=== PATIENT | male | born 1985 | race Caucasian/White ===

== ENCOUNTER 2016-08-27 | Emergency (ER) | payer OTHER, MEDICAID | END 2016-08-27 07:50 | disposition home or self-care (01) ==

== ENCOUNTER 2016-08-27 | Outpatient (CLI) | payer OTHER, MEDICAID | END 2016-08-27 06:47 | disposition critical access hospital (66) | CPT/HCPCS: A0425; A0429 ==

== ENCOUNTER 2016-08-29 14:49 | Emergency (ER) | payer OTHER, MEDICAID ==
[2016-08-29] MEDS ORDERED: IOPAMIDOL-300 100 ML VIAL IVP ONE (15:38)
== END 2016-08-29 17:00 | disposition home or self-care (01) ==
DX: S20.312A Abrasion of left front wall of thorax, initial encounter (principal); S29.011A Strain of muscle and tendon of front wall of thorax, initial encounter; R10.84 Generalized abdominal pain; V43.52XA Car driver injured in collision with other type car in traffic accident, initial encounter; Y92.488 Other paved roadways as the place of occurrence of the external cause; R03.0 Elevated blood-pressure reading, without diagnosis of hypertension; J45.909 Unspecified asthma, uncomplicated; F17.200 Nicotine dependence, unspecified, uncomplicated
CPT/HCPCS: 36415; 71260; 74177; 80053; 80320; 83690; 85025; 99283; 99284; Q9967

== ENCOUNTER 2016-09-02 13:08 | Emergency (ER) | payer OTHER, MEDICAID | END 2016-09-02 15:06 | disposition home or self-care (01) | DX: S39.012A Strain of muscle, fascia and tendon of lower back, initial encounter (principal); S16.1XXA Strain of muscle, fascia and tendon at neck level, initial encounter; V89.2XXA Person injured in unspecified motor-vehicle accident, traffic, initial encounter; M62.830 Muscle spasm of back; F17.200 Nicotine dependence, unspecified, uncomplicated ==

== ENCOUNTER 2016-12-16 23:35 | Outpatient (CLI) | payer MEDICAID | END 2016-12-16 23:36 | disposition EMS.NT | LOC: EMS 23:35 | PROVIDERS: ATTEND Surgery | DX: R25.2 Cramp and spasm (principal) ==

== ENCOUNTER 2016-12-17 00:06 | Emergency (ER) | payer MEDICAID, OTHER ==
--- NOTE | 2016-12-17 00:39 | ED Physician Documentation ---
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 [place] like "kinza horse".) Quality: Cramping Location: Other (lower abd wall muscles and also both anterior thighs) Radiation: No: Lower back Worsened by: Moving Associated symptoms: No: Fever, Nausea, Vomiting, Loss of appetite, Weight loss Similar symptoms before: Has not had sx before (has had some mild muscle cramping intermittently for 1-2 weeks. No significant muscle spasms/cramps like tonight in the past.) Recently seen: Not recently seen Review of Systems Constitutional: reports: Myalgias (thighs and legs the past week, but had returned to fencing job so thought it was just that. He has been drinking 12 beers daily for the past few months. Has been off alcohol for day or two at times, without withdrawal symptoms.). denies: Fever, Chills, Fatigue Nose: denies: Rhinorrhea / runny nose, Congestion Throat: denies: Sore throat Cardiac: denies: Chest pain / pressure Respiratory: denies: Cough GI: reports: Nausea. denies: Abdominal Pain, Vomiting, Diarrhea : denies: Dysuria, Frequency Skin: denies: Rash, Lesions Neurologic: denies: Focal weakness, Numbness Psychiatric: reports: Anxiety. denies: Depressed Endocrine: denies: Weight loss Immunocompromised: denies: Immunocompromised PD PAST MEDICAL HISTORY - Past Medical History Cardiovascular: None Respiratory: Asthma Neuro: None Endocrine/Autoimmune: None Psych: Anxiety, Panic attacks Derm: Eczema - Past Surgical History Past Surgical History: No - Present Medications Home Medications: Ambulatory Orders Medication Instructions Recorded Confirmed No Known Home Medications [No 12/17/16 12/17/16 Known Home Medications] - Allergies Allergies/Adverse Reactions: Allergies Allergy/AdvReac Type Severity Reaction Status Date / Time seafood Allergy Hives Uncoded 12/17/16 00:11 - Social History Does the pt smoke?: Yes Smoking Status: Current every day smoker Does the pt drink ETOH?: Yes ETOH Use: Beer Does the pt have substance abuse?: No - Family History Family history: reports: Non contributory - Immunizations Immunizations are current?: No Immunizations: TDAP >10years/unknown - POLST Patient has POLST: No PD ED PE NORMAL - Vitals Vital signs reviewed: Yes - General General: Alert and oriented X 3, No acute distress, Well developed/nourished, Other (smell of alcohol on his breath) - HEENT HEENT: Moist mucous membranes, Pharynx benign - Neck Neck: Supple, no meningeal sign, No adenopathy - Cardiac Cardiac: RRR, No murmur - Respiratory Respiratory: Clear bilaterally - Abdomen Abdomen: Normal bowel sounds, Soft, Non tender, Non distended - Derm Derm: Normal color, Warm and dry, No rash - Extremities Extremities: No calf tenderness / cord, Other (some tenderness in thigh muscles anteriorly. ) - Neuro Neuro: Alert and oriented X 3, No motor deficit, No sensory deficit, Normal speech Results - Vitals Vitals: Vital Signs - 24 hr 12/17/16 12/17/16 00:09 01:50 Temperature 36.1 C L 36.4 C L Heart Rate 77 Respiratory 16 16 Rate Blood Pressure 130/76 126/60 O2 Saturation 96 100 Oxygen O2 Source Room air - Labs Labs: Laboratory Tests 12/17/16 12/17/16 00:39 00:39 WBC 5.3 RBC 4.85 Hgb 15.1 Hct 43.6 MCV 89.9 MCH 31.1 H MCHC 34.6 RDW 13.6 Plt Count 164 MPV 9.3 Neut # 3.3 Lymph # 1.0 L [place] # 0.5 Eos # 0.4 Baso # 0.0 Absolute Nucleated RBC 0.00 Nucleated RBCs 0.0 Sodium 140 Potassium 3.6 Chloride 103 Carbon Dioxide 25 Anion Gap 12.0 BUN 24 H Creatinine 1.3 H Estimated GFR (MDRD) 65 L Glucose 104 H Calcium 9.3 Magnesium 1.9 Total Bilirubin 0.5 AST 33 ALT 24 Alkaline Phosphatase 64 Total Creatine Kinase 555 H Total Protein 7.4 Albumin 4.7 Globulin 2.7 Albumin/Globulin Ratio 1.7 Lipase 20 L PD MEDICAL DECISION MAKING - ED course Complexity details: considered differential (he has not been on abx, does not take meds such as statins. He does drink regularly so consider alcohol related myopathy with pains. He has been working doing fencing the past week, so could be muscle soreness from that. Mildly elevated CK of 500s. He does not seem dehydrated per se. ), d/w patient Departure - Departure Disposition: Home, Self Care Clinical Impression: Muscle cramping Condition: Stable Record reviewed to determine appropriate education?: Yes Instructions: ED Muscle Pain Leg Cramps Follow-Up: Meri Fonseca ARNP [Credentialed Staff Provider] - [facility] [Provider Group] Comments: Your electrolytes are normal in blood testing. There is sign of some muscle breakdown on blood test. This can be from many reasons, but common would be overuse, such as working hard. Some medications can cause it but you are not on regular medications. Excess alcohol can lead to muscle breakdown and weakness as well. I would maintain your level of hydration and food intake, but suggest to quite cut down on the amount of alcohol use. Rest tomorrow off work, and resume activity after that if feeling okay. Ibuprofen twice daily to help with muscle pains. Recheck if not improved over the next few days. Forms: Activity restrictions Discharge Date/Time: 12/17/16 01:50
[2016-12-17] MEDS ORDERED: SODIUM CHLORIDE 0.9% 1,000 ML IV ONE (00:54)
[2016-12-17 01:01] LABS: BASOPHILS % (AUTO) 0.7 %; EOSINOPHILS # (AUTO) 0.4 10^3/uL (0.0-0.7); EOSINOPHILS % (AUTO) 8.1 %; HCT - HEMATOCRIT 43.6 % (42.0-52.0); HGB - HEMOGLOBIN 15.1 g/dL (14.0-18.0); LYMPHOCYTES % (AUTO) 18.1 %; MEAN CORPUSCULAR HEMOGLOBIN 31.1 pg (27.0-31.0); MEAN CORPUSCULAR HGB CONC 34.6 g/dL (32.0-36.0); MEAN CORPUSCULAR VOLUME 89.9 fL (80.0-94.0); MEAN PLATELET VOLUME 9.3 fL (7.4-11.4); MONOCYTES # (AUTO) 0.5 10^3/uL (0.0-1.0); NEUTROPHILS # (AUTO) 3.3 10^3/uL (1.5-6.6); NEUTROPHILS % (AUTO) 63.1 %; RED BLOOD COUNT 4.85 10^6/uL (4.70-6.10); RED CELL DISTRIBUTION WIDTH 13.6 % (12.0-15.0); UNCORRECTED WHITE BLOOD COUNT 5.3 x10^3/uL; WHITE BLOOD COUNT 5.3 x10^3/uL (4.8-10.8)
[2016-12-17 01:11] LABS: ALBUMIN/GLOBULIN RATIO 1.7 (1.0-2.2); BILIRUBIN,TOTAL 0.5 mg/dL (0.2-1.0); CALCIUM 9.3 mg/dL (8.5-10.3); CREATININE 1.3 mg/dL (0.6-1.2); MAGNESIUM 1.9 mg/dL (1.7-2.8); POTASSIUM 3.6 mmol/L (3.5-5.0); TOTAL PROTEIN 7.4 g/dL (6.7-8.2)
[2016-12-17 01:52] VITALS: BP 126/60
== END 2016-12-17 01:50 | disposition home or self-care (01) ==
LOC: ED 00:06
DX: G47.62 Sleep related leg cramps (principal); J45.909 Unspecified asthma, uncomplicated; F17.200 Nicotine dependence, unspecified, uncomplicated
CPT/HCPCS: 36415; 80053; 82550; 83690; 83735; 85025; 96360; 99283; 99284

== ENCOUNTER 2017-01-04 10:20 | Emergency (ER) | payer MEDICAID ==
--- NOTE | 2017-01-04 11:53 | ED Physician Documentation ---
History of Present Illness - Stated complaint Stated Complaint: DEPRESSION - Chief complaint Chief Complaint: MHE - History obtained from History obtained from: Patient - Treatment prior to arrival Treatment prior to arrival: Patient is a pleasant 31-year-old man with a long history of alcohol abuse. He currently drinks about 12 beers a day. He is here because he has been feeling down. He has felt depressed off and on for a long time and is never really been formally medicated for this problem. He is aware that his alcohol consumption is a problem and that he does have alcoholism. He does have some family who lives locally in the area. More recently he has had problems with homelessness and loss of his girlfriend and fairly recently he has lost his job. He denies any suicidality although many years ago he thought about it but he said he would never do it. He currently is going to be staying with a friend and has an appointment next week with Mari Alba on Friday He does not have any history of illicit drug use although he does smokeCigarettes. He does mention that many years ago he did have a problem methamphetamines but this is been at least 8 years.He has had periods of time where he is gone without drinking and has not had any formal withdrawal symptoms. Review of systems: For pertinent positive and negative questions for the review of systems please see history of present illness. Otherwise all other systems have been reviewed and are negative. Dragon disclaimer: Parts of this medical record were created using voice recognition technology. Because of the inherent limitations of this system occasional same sounding word substitutions do occur and persist despite proofreading. Please read the document for context. PD PAST MEDICAL HISTORY - Past Medical History Cardiovascular: None Respiratory: Asthma Neuro: None Endocrine/Autoimmune: None Psych: Anxiety, Panic attacks Derm: Eczema - Past Surgical History Past Surgical History: No - Present Medications Home Medications: Ambulatory Orders Medication Instructions Recorded Confirmed Lorazepam [Ativan] 1 mg PO TID #14 tablet 01/04/17 - Allergies Allergies/Adverse Reactions: Allergies Allergy/AdvReac Type Severity Reaction Status Date / Time seafood Allergy Hives Uncoded 12/17/16 00:11 - Social History Does the pt smoke?: Yes Smoking Status: Current every day smoker Does the pt drink ETOH?: Yes Does the pt have substance abuse?: No - Immunizations Immunizations are current?: No Immunizations: TDAP >10years/unknown - POLST Patient has POLST: No PD ED PE NORMAL - General General: Alert and oriented X 3, No acute distress - HEENT HEENT: Atraumatic, PERRL, EOMI, Ears normal, Moist mucous membranes, Pharynx benign, Dentition benign - Neck Neck: Supple, no meningeal sign - Cardiac Cardiac: RRR, No murmur, No gallop, No rub - Respiratory Respiratory: No respiratory distress, Clear bilaterally - Abdomen Abdomen: Normal bowel sounds, Soft, Non tender, Non distended - Derm Derm: Normal color, Warm and dry, No rash - Extremities Extremities: No deformity, No tenderness to palpate - Neuro Neuro: Alert and oriented X 3, grounds person 2-12 intact, No motor deficit, No sensory deficit - Psych Psych: Normal mood - Free text exam Free text exam: Mildly depressed mood and affect Results - Vitals Vitals: Vital Signs - 24 hr 01/04/17 10:23 Temperature 36.8 C Heart Rate 75 Respiratory 16 Rate Blood Pressure 137/84 H O2 Saturation 97 Oxygen O2 Source Room air PD MEDICAL DECISION MAKING - ED course ED course: Patient is a pleasant 31-year-old male with a history of alcoholism and more recently depression. There are several things in his life that he is down about. His job with his girlfriend at home situation. He does have family and friend support in the area. He does realize that alcohol is probably guzmán toHis problems. It does not sound like he is ready however to go into rehabilitation although was offered to him today. He is hoping to follow-up outpatient and remedy this problem is also hoping for a small amount of benzodiazepines toHelp him with his anxiety symptoms and also his withdrawal.I did talk with him about Alcoholics Anonymous and other various support groups and the importance of stopping alcoholism as it is probably causal to all of the other social and psychologic problems that he is having. He does agree to try to significantly decrease amount of drinking he is doing in the future and does agree to follow- up on Friday for the appointment and also will try Alcoholics Anonymous. Patient was seen by mental health and they are in agreement. He apparently is contracted to safety. He agrees to come back should he worsen in any way at this point in time will be discharged to home. Disposition: To home Clinical impression: 1. Acute depression 2. Alcoholism 3. No suicidal or homicidal ideation Departure - Departure Disposition: Home, Self Care Clinical Impression: Anxiety, Alcohol abuse Depression Qualifiers: Depression Type: dysthymia Qualified Code(s): F34.1 - Dysthymic disorder Condition: Good Instructions: ED Depression, ED Panic Attack, Alcoholism Prescriptions: Lorazepam [Ativan] 1 mg PO TID #14 tablet Comments: Follow-up on Friday with your appointment with Mari Alba as previously planned
[2017-01-04 12:25] VITALS: BP 130/80
== END 2017-01-04 12:21 | disposition home or self-care (01) ==
LOC: ED 10:20
DX: F32.9 Major depressive disorder, single episode, unspecified (principal); F10.20 Alcohol dependence, uncomplicated; F41.9 Anxiety disorder, unspecified; F17.200 Nicotine dependence, unspecified, uncomplicated; F34.1 Dysthymic disorder
CPT/HCPCS: 99283

== ENCOUNTER 2017-01-13 17:36 | Emergency (ER) | payer MEDICAID ==
--- NOTE | 2017-01-13 19:50 | ED Physician Documentation ---
PD HPI LOWER EXT INJURY - Stated complaint Stated Complaint: LEFT CALF INJ - Chief complaint Chief Complaint: Ext Problem - History obtained from History obtained from: Patient - History of Present Illness PD HPI LOW EXT INJURY LOCATION: Other (Hit left medial calf with a skateboard while skateboarding today, has moderate pain but no pain at rest.) Review of Systems Constitutional: reports: Reviewed and negative Throat: reports: Reviewed and negative Cardiac: reports: Reviewed and negative PD PAST MEDICAL HISTORY - Past Medical History Past Medical History: Yes Cardiovascular: None Respiratory: Asthma Neuro: None Endocrine/Autoimmune: None Psych: Anxiety, Panic attacks Derm: Eczema - Past Surgical History Past Surgical History: No - Present Medications Home Medications: Ambulatory Orders Medication Instructions Recorded Confirmed Lorazepam [Ativan] 1 mg PO TID PRN 01/13/17 01/13/17 - Allergies Allergies/Adverse Reactions: Allergies Allergy/AdvReac Type Severity Reaction Status Date / Time seafood Allergy Hives Uncoded 01/13/17 17:44 - Social History Does the pt smoke?: Yes Smoking Status: Current every day smoker Does the pt drink ETOH?: Yes ETOH Use: Beer Does the pt have substance abuse?: No - Immunizations Immunizations are current?: No Immunizations: TDAP >10years/unknown - POLST Patient has POLST: No PD ED PE NORMAL - Vitals Vital signs reviewed: Yes - General General: Alert and oriented X 3, No acute distress - Extremities Extremities: Other (Mild tenderness with an overlying abrasion to the left medial calf without passive range of motion or rest pain. No bony tenderness.) - Neuro Neuro: Alert and oriented X 3, Normal speech - Psych Psych: Normal mood, Normal affect Results - Vitals Vitals: Vital Signs - 24 hr 01/13/17 17:43 Temperature 36.5 C Heart Rate 91 Respiratory 18 Rate Blood Pressure 137/82 H O2 Saturation 99 Oxygen O2 Source Room air PD MEDICAL DECISION MAKING - ED course ED course: No evidence of compartment syndrome in this soft tissue injury now but he was given signs and symptoms to watch out for and conservative care otherwise was advised. Departure - Departure Disposition: 01 Home, Self Care Clinical Impression: Contusion of left calf Qualifiers: Encounter type: initial encounter Qualified Code(s): S80.12XA - Contusion of left lower leg, initial encounter Condition: Good Record reviewed to determine appropriate education?: Yes Instructions: ED Contusion Lower Extr Ch Comments: Return if you develop the symptoms we discussed, severe pain at rest. Elevate it. Your blood pressure was elevated today on check into the emergency department. This does not mean that you have hypertension, it is a common phenomenon to come to the emergency department and have elevated blood pressure. I recommend that she see her primary care physician within the week to have it rechecked when you are feeling better. Forms: Activity restrictions
[2017-01-13 20:19] VITALS: BP 134/82
== END 2017-01-13 20:17 | disposition home or self-care (01) ==
LOC: ED 17:36
DX: S80.12XA Contusion of left lower leg, initial encounter (principal); W22.8XXA Striking against or struck by other objects, initial encounter; Y93.51 Activity, roller skating (inline) and skateboarding; R03.0 Elevated blood-pressure reading, without diagnosis of hypertension; F17.200 Nicotine dependence, unspecified, uncomplicated
CPT/HCPCS: 99282

== ENCOUNTER 2017-01-28 08:35 | Emergency (ER) | payer MEDICAID ==
[2017-01-28 08:46] VITALS: BP 143/83
--- NOTE | 2017-01-28 09:05 | ED Physician Documentation ---
History of Present Illness - Stated complaint Stated Complaint: LEG PX - Chief complaint Chief Complaint: General - Additonal information Additional information: hx for pt he has been drinking 12 beers a day since approx [place] it is affecting his work etc he would like to stop now has done outpt withdrawl/detox with librium and/or ativan before without developing DTs he feels he may be dehydrated from the EtOH cvausing muscle cramps, but he has been drinking lots of water and gatorade no other complaints Review of Systems Constitutional: denies: Fever Cardiac: denies: Chest pain / pressure Respiratory: denies: Cough GI: reports: Diarrhea (occ in AM no blood). denies: Abdominal Pain, Nausea, Vomiting Musculoskeletal: reports: Other (mm cramps) PD PAST MEDICAL HISTORY - Past Medical History Past Medical History: Yes Cardiovascular: None Respiratory: Asthma Neuro: None Endocrine/Autoimmune: None Psych: Anxiety, Panic attacks Derm: Eczema - Past Surgical History Past Surgical History: No - Present Medications Home Medications: Ambulatory Orders Medication Instructions Recorded Confirmed Lorazepam [Ativan] 1 mg PO TID PRN 01/13/17 01/13/17 Ondansetron Odt [Zofran] 4 mg TL Q6H PRN #10 tablet 01/28/17 chlordiazePOXIDE [Librium] 25 mg PO DAILY PRN #11 capsule 01/28/17 - Allergies Allergies/Adverse Reactions: Allergies Allergy/AdvReac Type Severity Reaction Status Date / Time seafood Allergy Hives Uncoded 01/13/17 17:44 - Social History Does the pt smoke?: Yes Smoking Status: Current every day smoker Does the pt drink ETOH?: Yes Does the pt have substance abuse?: No - Immunizations Immunizations are current?: No Immunizations: TDAP >10years/unknown - POLST Patient has POLST: No PD ED PE NORMAL - Vitals Vital signs reviewed: Yes - Cardiac Cardiac: RRR - Respiratory Respiratory: No respiratory distress, Clear bilaterally - Abdomen Abdomen: Soft, Non tender - Derm Derm: Normal color - Extremities Extremities: No deformity, No tenderness to palpate, Normal ROM s pain, No edema , No calf tenderness / cord Results - Vitals Vitals: Vital Signs - 24 hr 01/28/17 08:42 Temperature 37.0 C Heart Rate 72 Respiratory 17 Rate Blood Pressure 143/83 H O2 Saturation 100 Oxygen O2 Source Room air Departure - Departure Disposition: Home, Self Care Clinical Impression: Alcohol withdrawal Qualifiers: Complication of substance-induced condition: uncomplicated Qualified Code(s): F10.230 - Alcohol dependence with withdrawal, uncomplicated Condition: Good Instructions: ED Withdrawal Alcohol Prescriptions: chlordiazePOXIDE [Librium] 25 mg PO DAILY PRN #9 capsule PRN Reason: withdrawal symptoms Ondansetron Odt [Zofran] 4 mg TL Q6H PRN #10 tablet PRN Reason: Nausea / Vomiting Comments: We have provided you with local resources for outpatient assistance with alcohol cessation Return if worse as we discussed Do not drive while taking librium Do not drink alcohol while taking librium And please have your PMD recheck your blood pressure - it was high today Forms: Activity restrictions
== END 2017-01-28 09:37 | disposition home or self-care (01) ==
LOC: ED 08:35
DX: F10.230 Alcohol dependence with withdrawal, uncomplicated (principal); R03.0 Elevated blood-pressure reading, without diagnosis of hypertension; F17.200 Nicotine dependence, unspecified, uncomplicated
CPT/HCPCS: 99283

== ENCOUNTER 2017-02-10 09:52 | Emergency (ER) | payer MEDICAID ==
--- NOTE | 2017-02-10 11:09 | ED Physician Documentation ---
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 No: Fever, Hemoptysis, Chest pain / discomfort, Palpitations, Diaphoresis, Bilateral edema, Anxiety Similar symptoms before: Diagnosis (asthma) Recently seen: Not recently seen - Additional information Additional information: 31-year-old male has not had a problem with his asthma for the past year. He has not had use his inhaler. 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 He developed acute wheezing this is now improved.He also has a rash on his chest that has not resolved. Review of Systems Constitutional: denies: Fever, Chills, Myalgias Eyes: denies: Decreased vision Ears: denies: Ear pain Nose: denies: Congestion Throat: denies: Sore throat Cardiac: denies: Chest pain / pressure, Palpitations Respiratory: reports: Dyspnea, Cough, Wheezing GI: denies: Abdominal Pain, Nausea, Vomiting : denies: Dysuria, Frequency Skin: reports: Rash. denies: Abrasion (s) Musculoskeletal: denies: Neck pain Neurologic: denies: Generalized weakness PD PAST MEDICAL HISTORY - Past Medical History Past Medical History: Yes Cardiovascular: None Respiratory: Asthma Neuro: None Endocrine/Autoimmune: None Psych: Anxiety, Panic attacks Derm: Eczema - Past Surgical History Past Surgical History: No - Present Medications Home Medications: Ambulatory Orders Medication Instructions Recorded Confirmed Albuterol Sulf [Ventolin Hfa 1 - 2 puffs INH Q4HR PRN #1 inhaler 02/10/17 Inhaler] Terbinafine [Lamisil] 250 mg PO DAILY #14 tablet 02/10/17 - Allergies Allergies/Adverse Reactions: Allergies Allergy/AdvReac Type Severity Reaction Status Date / Time seafood Allergy Hives Uncoded 01/13/17 17:44 - Social History Does the pt smoke?: Yes Smoking Status: Current every day smoker Does the pt drink ETOH?: Yes Does the pt have substance abuse?: No - Immunizations Immunizations are current?: No Immunizations: TDAP >10years/unknown - POLST Patient has POLST: No PD ED PE NORMAL - Vitals Vital signs reviewed: Yes (normal ) - General General: Alert and oriented X 3, No acute distress, Well developed/nourished - HEENT HEENT: Atraumatic, PERRL, EOMI, Ears normal, Moist mucous membranes, Pharynx benign, Dentition benign - Neck Neck: Supple, no meningeal sign, No bony TTP - Cardiac Cardiac: RRR, No murmur - Respiratory Respiratory: No respiratory distress, Clear bilaterally - Abdomen Abdomen: Soft, Non tender - Back Back: No CVA TTP, No spinal TTP - Derm Derm: Normal color, Warm and dry, Other (There is a fine anular rash over the chest and upper abdomen. ) Results - Vitals Vitals: Vital Signs - 24 hr 02/10/17 09:54 Temperature 36.6 C Heart Rate 65 Respiratory 18 Rate Blood Pressure 127/79 O2 Saturation 99 Oxygen O2 Source Room air PD MEDICAL DECISION MAKING - ED course Complexity details: reviewed old records, considered differential, d/w patient ED course: 31-year-old male with history of asthma is not acutely dyspneic on evaluation. He is requesting an inhaler. He also has a fine annular rash consistent with tinea corporis. He is prescribed terbinafine as he is failed topical. Departure - Departure Disposition: 01 Home, Self Care Clinical Impression: Tinea corporis Asthma Qualifiers: Asthma severity: mild intermittent Asthma complication type: with acute exacerbation Qualified Code(s): J45.21 - Mild intermittent asthma with (acute) exacerbation Condition: Stable Instructions: ED Reactive Airway Disease, ED Ringworm Infec Fungal Follow-Up: Your, doctor [Other] Prescriptions: Albuterol Sulf [Ventolin Hfa Inhaler] 1 - 2 puffs INH Q4HR PRN #1 inhaler PRN Reason: Shortness Of Air/Wheezing Terbinafine [Lamisil] 250 mg PO DAILY #14 tablet
[2017-02-10 11:24] VITALS: BP 122/72
== END 2017-02-10 11:23 | disposition home or self-care (01) ==
LOC: ED 09:52
DX: J45.21 Mild intermittent asthma with (acute) exacerbation (principal); B35.4 Tinea corporis; F17.200 Nicotine dependence, unspecified, uncomplicated
CPT/HCPCS: 99283

== ENCOUNTER 2017-03-17 12:24 | Emergency (ER) | payer MEDICAID ==
--- NOTE | 2017-03-17 14:11 | ED Physician Documentation ---
History of Present Illness - Stated complaint Stated Complaint: RASH/ANXIETY - Additonal information Additional information: hx from pt to ER for 3 reasons 1) chronic rash to abd, seen for dame in past, dx eczema and/or fungal, no meds to apply at this time 2) subacute tender spot ro right scrotum he thinks is infected, he already pokes it with a needle and got some pus out, now just hard and tender 3) suffers from axiety and depression, not suicidal or homidical, out of ativan , has been drinking Review of Systems Constitutional: denies: Fever Cardiac: denies: Chest pain / pressure Respiratory: denies: Dyspnea, Cough GI: denies: Abdominal Pain, Nausea, Vomiting : reports: Other (scrotal sore) Skin: reports: Rash Psychiatric: reports: Depressed, Anxiety. denies: Suicidal, Homicidal PD PAST MEDICAL HISTORY - Past Medical History Cardiovascular: None Respiratory: Asthma Neuro: None Endocrine/Autoimmune: None Psych: Anxiety, Panic attacks Derm: Eczema - Past Surgical History Past Surgical History: No - Present Medications Home Medications: Ambulatory Orders Medication Instructions Recorded Confirmed Albuterol Sulf [Ventolin Hfa 1 - 2 puffs INH Q4HR PRN #1 inhaler 02/10/17 Inhaler] Terbinafine [Lamisil] 250 mg PO DAILY #14 tablet 02/10/17 03/17/17 Cephalexin [Keflex] 500 mg PO Q6H #28 capsule 03/17/17 Clotrimazole [Clotrimazole AF] 1 applic TP BID #30 g 03/17/17 LORazepam [Ativan] 0.5 mg PO Q6H PRN #10 tablet 03/17/17 Mupirocin Calcium [Bactroban] 1 applic TP BID #15 g 03/17/17 - Allergies Allergies/Adverse Reactions: Allergies Allergy/AdvReac Type Severity Reaction Status Date / Time seafood Allergy Hives Uncoded 01/13/17 17:44 - Social History Does the pt smoke?: Yes Smoking Status: Current every day smoker Does the pt drink ETOH?: Yes Does the pt have substance abuse?: No - Immunizations Immunizations are current?: No Immunizations: TDAP >10years/unknown - POLST Patient has POLST: No PD ED PE NORMAL - Vitals Vital signs reviewed: Yes - Neck Neck: Supple, no meningeal sign - Cardiac Cardiac: RRR - Respiratory Respiratory: No respiratory distress, Clear bilaterally - Abdomen Abdomen: Non tender - Derm Derm: Other (large patches of faint pink discoloration with slightly raised scaling border to abd, also small hard tender but not fluctaunt or red or warm 0.5 X 1 cm induration to proximal ventral R scrotum) - Neuro Neuro: Alert and oriented X 3, Other (anxious) Results - Vitals Vitals: Vital Signs - 24 hr 03/17/17 12:27 Temperature 36.4 C L Heart Rate 95 Respiratory 20 Rate Blood Pressure 141/91 H O2 Saturation 100 Oxygen O2 Source Room air Departure - Departure Disposition: Home, Self Care Clinical Impression: Anxiety, Tinea, Abscess Condition: Good Instructions: Anxiety Disorder, ED Alcohol Abuse, ED Ringworm Infec Fungal, ED Abscess Abx Tx Only Ch Prescriptions: LORazepam [Ativan] 0.5 mg PO Q6H PRN #10 tablet PRN Reason: severe anxiety Mupirocin Calcium [Bactroban] 1 applic TP BID #15 g Clotrimazole [Clotrimazole AF] 1 applic TP BID #30 g Cephalexin [Keflex] 500 mg PO Q6H #28 capsule Comments: For the fungal infection to your abdomen - apply the clotrimazole cream twice a day until better For the abscess to the scrotum - it is small and you have already drained it so I recommend keflex orally and bactroban topical for 7 days. If either condition is not better, please follow up with your PMD I did write you a small amount of ativan for your anxiety - you absolutely must not mix alcohol and ativan You have been resources including programs for alcohol abuse and the numbers for [facility] and [facility] who I recommend you call to establish care and counseling for your anxiety and depression. The number for the crisis line as well And please get your blood pressure rechecked - it was high today
[2017-03-17 14:22] VITALS: BP 138/98
== END 2017-03-17 14:29 | disposition home or self-care (01) ==
LOC: ED 12:24
DX: N49.2 Inflammatory disorders of scrotum (principal); B35.4 Tinea corporis; F41.9 Anxiety disorder, unspecified; F32.9 Major depressive disorder, single episode, unspecified; R03.0 Elevated blood-pressure reading, without diagnosis of hypertension; F17.200 Nicotine dependence, unspecified, uncomplicated
CPT/HCPCS: 99283; 99284

== ENCOUNTER 2017-04-18 00:36 | Outpatient (CLI) | payer SELFPAY | END 2017-04-18 00:37 | disposition EMS.NT | LOC: EMS 00:36 | PROVIDERS: ATTEND Surgery | DX: S61.011A Laceration without foreign body of right thumb without damage to nail, initial encounter (principal); W26.8XXA Contact with other sharp object(s), not elsewhere classified, initial encounter; Y93.G1 Activity, food preparation and clean up; Y92.029 Unspecified place in mobile home as the place of occurrence of the external cause ==

== ENCOUNTER 2017-07-07 09:30 | Emergency (ER) | payer MEDICAID ==
[2017-07-07 09:55] VITALS: BP 128/78
--- NOTE | 2017-07-07 10:36 | ED Physician Documentation ---
PD HPI HEENT - Stated complaint Stated Complaint: TOOTH PAIN - Chief complaint Chief Complaint: Heent - History obtained from History obtained from: Patient - History of Present Illness Timing - duration: Days Timing - details: Gradual onset, Still present Location: Tooth (left lower) Associated symptoms: Facial swelling Similar symptoms before: Diagnosis (had been to [facility] he needs oral surgeon.) Review of Systems Constitutional: denies: Fever, Chills Throat: reports: Dental pain / toothache. denies: Sore throat PD PAST MEDICAL HISTORY - Past Medical History Cardiovascular: None Respiratory: Asthma Neuro: None Endocrine/Autoimmune: None Psych: Anxiety, Panic attacks Derm: Eczema - Past Surgical History Past Surgical History: No - Present Medications Home Medications: Ambulatory Orders Medication Instructions Recorded Confirmed Clindamycin HCl [Cleocin HCl] 300 mg PO TID #21 capsule 07/07/17 HYDROcod/ACETAM 5/325 [Andrew 5/325] 1 tab PO Q6H PRN #15 tablet 07/07/17 Lorazepam [Ativan] 1 mg PO BID PRN #12 tablet 07/07/17 Naproxen 375 mg PO BID #20 tablet 07/07/17 - Allergies Allergies/Adverse Reactions: Allergies Allergy/AdvReac Type Severity Reaction Status Date / Time seafood Allergy Hives Uncoded 05/01/17 16:33 - Social History Does the pt smoke?: Yes Smoking Status: Current every day smoker Does the pt drink ETOH?: Yes Does the pt have substance abuse?: No - Immunizations Immunizations are current?: No Immunizations: TDAP >10years/unknown - POLST Patient has POLST: No PD ED PE NORMAL - Vitals Vital signs reviewed: Yes - General General: Alert and oriented X 3, No acute distress, Well developed/nourished - HEENT HEENT: Dentition benign (most of the teeth are good. Left lower molar with tissue impaction over half of it, with red and swelling gum. No fluctuance. ) - Neck Neck: Supple, no meningeal sign, Other (left anterior node) Results - Vitals Vitals: Oxygen O2 Source Room air Departure - Departure Disposition: Home, Self Care Clinical Impression: Anxiety, Dental infection Condition: Stable Record reviewed to determine appropriate education?: Yes Instructions: ED Tooth Pain Follow-Up: Veronica Simpson ARNP [Primary Care Provider] - Prescriptions: Clindamycin HCl [Cleocin HCl] 300 mg PO TID #21 capsule HYDROcod/ACETAM 5/325 [Andrew 5/325] 1 tab PO Q6H PRN #15 tablet PRN Reason: Pain Lorazepam [Ativan] 1 mg PO BID PRN #12 tablet PRN Reason: Anxiety Naproxen 375 mg PO BID #20 tablet Comments: Call the [facility] to make an appointment to have your molar likely removed. Their appointment number is [phone]. Presume an infection and use naproxen twice daily. Add hydrocodone if needed for pain. Clindamycin for the infection. Continue your Ativan if needed occasionally for anxiety. Your tooth will not get fully better without getting dental care for it. Discharge Date/Time: 07/07/17 10:58
[2017-07-07] MEDS ORDERED: CLINDAMYCIN 150 MG CAPSULE PO STA (10:49)
[2017-07-07] MEDS: HYDROcod/ACETAM 5/325 MG TABLET PO STA ×2 (10:55→10:56)
== END 2017-07-07 10:58 | disposition home or self-care (01) ==
LOC: ED 09:30
DX: K04.7 Periapical abscess without sinus (principal); F41.9 Anxiety disorder, unspecified; F17.200 Nicotine dependence, unspecified, uncomplicated
CPT/HCPCS: 99283; A9270

== ENCOUNTER 2018-02-02 08:00 | Outpatient (CLI) | payer MEDICAID ==
[2018-02-04 12:03] LABS: HSV 1 IGG TYPE SPECIFIC AB <0.90 index; HSV 2 IGG TYPE SPECIFIC AB <0.90 index
== END 2018-02-02 08:01 | disposition home or self-care (01) ==
LOC: LAB.S 08:00
PROVIDERS: ATTEND Nurse Practitioner Family
DX: Z11.3 Encounter for screening for infections with a predominantly sexual mode of transmission (principal)
CPT/HCPCS: 36415; 81599; 86695; 86696

== ENCOUNTER 2018-05-15 13:15 | Emergency (ER) | payer MEDICAID ==
[2018-05-15 13:40] VITALS: BP 145/85
== END 2018-05-15 16:00 | disposition left against medical advice (07) ==
LOC: ED 13:15
DX: R19.7 Diarrhea, unspecified (principal); R50.9 Fever, unspecified; R05 Cough; Z53.21 Procedure and treatment not carried out due to patient leaving prior to being seen by health care provider
CPT/HCPCS: 80053; 83690; 85025

== ENCOUNTER 2018-10-18 17:57 | Outpatient (CLI) | payer MEDICAID | END 2018-10-18 17:58 | disposition home or self-care (01) | LOC: EMS 17:57 | PROVIDERS: ATTEND Surgery | DX: R51 Headache (principal); H53.8 Other visual disturbances; R53.1 Weakness | CPT/HCPCS: A0425; A0429; A0999 ==

== ENCOUNTER 2018-10-18 18:24 | Emergency (ER) | payer MEDICAID ==
--- NOTE | 2018-10-18 18:36 | ED Physician Documentation ---
PD HPI NVD - Stated complaint Stated Complaint: ANXIETY - Chief complaint Chief Complaint: MHE - History obtained from History obtained from: Patient, EMS - History of Present Illness Timing - onset: How many hours ago (2), Today Timing - duration: Hours (2) Timing - details: Gradual onset (couple hours ago, he started to feel anxious and "tunnel vision" and this kept increasing. Prior similar with panic attacks. He states he drinks about 12 beers daily but does it at end of the work day, and does not get anxious during the day. He says he will get slightly shaky by end of the day, but thought it might be hydration as well as he does not drink water/fluids other than beer in evening and coffee during the day.), Now resolved (improved enroute by EMS with talking.) Associated symptoms: No: Fever, Abdominal pain, Chest pain Contributing factors: No: Sick contact, Bad food Similar symptoms before: Diagnosis (panic attacks) Recently seen: Not recently seen Review of Systems Constitutional: denies: Fever, Chills Nose: denies: Rhinorrhea / runny nose, Congestion Throat: denies: Sore throat Respiratory: denies: Cough GI: reports: Nausea, Diarrhea (some the past 2-3 days). denies: Vomiting, Bloody / black stool Skin: reports: Rash (has had crural rash (jock itch") for months, that has spread from groin to pubis and near umbilicus now.) Neurologic: denies: Focal weakness, Numbness, Confused, Altered mental status, Headache PD PAST MEDICAL HISTORY - Past Medical History Cardiovascular: None Respiratory: Asthma Endocrine/Autoimmune: None Psych: Anxiety, Panic attacks Derm: Eczema - Past Surgical History Past Surgical History: No - Present Medications Home Medications: Ambulatory Orders Medication Instructions Recorded Confirmed Clotrimazole 1 applic TP BID #45 cream..g. 10/18/18 Fluconazole [Diflucan] 150 mg PO ONCE #3 tablet 10/18/18 LORazepam [Ativan] 1 mg PO Q8H PRN #25 tablet 10/18/18 Ondansetron Odt [Zofran] 4 mg TL Q6H PRN #15 tablet 10/18/18 - Allergies Allergies/Adverse Reactions: Allergies Allergy/AdvReac Type Severity Reaction Status Date / Time shellfish derived Allergy Hives Verified 10/18/18 18:28 shrimp Allergy Hives Verified 10/18/18 18:28 seafood Allergy Hives Uncoded 10/18/18 18:28 - Social History Does the pt smoke?: Yes Smoking Status: Current every day smoker Does the pt drink ETOH?: Yes Does the pt have substance abuse?: No - Immunizations Immunizations are current?: No Immunizations: TDAP >10years/unknown - POLST Patient has POLST: No PD ED PE NORMAL - Vitals Vital signs reviewed: Yes - General General: Alert and oriented X 3, Well developed/nourished, Other (he says he is feeling less anxious now, felt it was a panic attack earlier. ) - HEENT HEENT: Atraumatic, Pharynx benign - Neck Neck: Supple, no meningeal sign, No adenopathy - Cardiac Cardiac: RRR, No murmur - Respiratory Respiratory: Clear bilaterally - Abdomen Abdomen: Soft, Non tender - Derm Derm: Normal color, Warm and dry, Other (has red, demarcated, nonulcerative rash in crural area both sides that is confluent to pubic area and almost up to the umbilicus. ) - Neuro Neuro: Alert and oriented X 3, No motor deficit, Normal speech Results - Vitals Vitals: Vital Signs - 24 hr 10/18/18 10/18/18 18:25 20:00 Heart Rate 70 76 Respiratory 16 16 Rate Blood Pressure 143/93 H 140/93 H O2 Saturation 97 98 Oxygen O2 Source Room air PD MEDICAL DECISION MAKING - ED course Complexity details: considered differential (he says he is not ready to stop drinking just yet, and will have some to drink tonight, so declines any ativan or such here right now. SALLIE talked with him and gave info/resources for detox programs. He says he will call them tomorrow. Given Rx for Ativan/Zofran for detox. ALso given meds for his extensive tinea cruris.), d/w patient Departure - Departure Disposition: 01 Home, Self Care Clinical Impression: Panic disorder [episodic paroxysmal anxiety], Alcoholism, Tinea cruris Condition: Stable Record reviewed to determine appropriate education?: Yes Instructions: ED Panic Attack, ED Alcohol Abuse Follow-Up: [facility] [Provider Group] [facility] [place] [Provider Group] Prescriptions: Clotrimazole 1 applic TP BID #45 cream..g. Fluconazole [Diflucan] 150 mg PO ONCE #3 tablet LORazepam [Ativan] 1 mg PO Q8H PRN #25 tablet PRN Reason: Alcohol Withdrawal Ondansetron Odt [Zofran] 4 mg TL Q6H PRN #15 tablet PRN Reason: Nausea / Vomiting Comments: Seek treatment and counseling for alcohol cessation. Refer to the resources given by the social services counselor. Reduce and stop alcohol drinking. Use Lorazepam (Ativan) as needed for withdrawal symptoms. Ondansetron if needed for nausea. Try to drink regular fluids and sports drinks for the electrolytes. Hydrate well. Try to eat regularly as well. For the yeast skin infection, use Diflucan tablet every 3 days for 3 doses total and you can also use topical Chlortrimazole in the worst areas to get it improved. Discharge Date/Time: 10/18/18 20:00
[2018-10-18] MEDS ORDERED: ONDANSETRON ODT 4 MG Prepack 2 TL PRN (19:48)
[2018-10-18 20:01] VITALS: BP 140/93
== END 2018-10-18 20:00 | disposition home or self-care (01) ==
LOC: EDUNIT# → ED 18:24
DX: F41.0 Panic disorder [episodic paroxysmal anxiety] (principal); F10.20 Alcohol dependence, uncomplicated; B35.6 Tinea cruris
CPT/HCPCS: 99283

== ENCOUNTER 2018-10-19 08:00 | Outpatient (CLI) | payer MEDICAID ==
[2018-10-19 18:00] LABS: BASOPHILS % (AUTO) 0.4 %; EOSINOPHILS # (AUTO) 0.2 10^3/uL (0.0-0.7); HGB - HEMOGLOBIN 16.2 g/dL (14.0-18.0); LYMPHOCYTES # (AUTO) 0.6 10^3/uL (1.5-3.5); LYMPHOCYTES % (AUTO) 15.1 %; MEAN CORPUSCULAR HGB CONC 33.7 g/dL (32.0-36.0); MEAN CORPUSCULAR VOLUME 91.9 fL (80.0-94.0); MEAN PLATELET VOLUME 9.5 fL (7.4-11.4); MONOCYTES # (AUTO) 0.4 10^3/uL (0.0-1.0); MONOCYTES % (AUTO) 10.4 %; NEUTROPHILS # (AUTO) 2.5 10^3/uL (1.5-6.6); NEUTROPHILS % (AUTO) 68.1 %; PLT - PLATELET COUNT 177 10^3/uL (130-450); RED BLOOD COUNT 5.22 10^6/uL (4.70-6.10); RED CELL DISTRIBUTION WIDTH 13.8 % (12.0-15.0); WHITE BLOOD COUNT 3.7 x10^3/uL (4.8-10.8)
[2018-10-19 18:01] LABS: ALBUMIN 4.7 g/dL (3.2-5.5); ALBUMIN/GLOBULIN RATIO 1.6 (1.0-2.2); BILIRUBIN,TOTAL 0.8 mg/dL (0.2-1.0); CALCIUM 9.6 mg/dL (8.5-10.3); CREATININE 0.9 mg/dL (0.6-1.2); TOTAL PROTEIN 7.7 g/dL (6.7-8.2)
== END 2018-10-19 23:59 | disposition home or self-care (01) ==
LOC: LAB.S 08:00
PROVIDERS: ATTEND Nurse Practitioner Family
DX: F10.10 Alcohol abuse, uncomplicated (principal); F41.8 Other specified anxiety disorders
CPT/HCPCS: 36415; 80053; 84443; 85025

== ENCOUNTER 2019-08-30 13:12 | Emergency (ER) | payer MEDICAID ==
[2019-08-30] MEDS ORDERED: DEXAMETHASONE 10 MG/ML VIAL PO STA (14:50)
[2019-08-30] MEDS ORDERED: CHERRY SYRUP 10 ML UDC PO ONE (14:50)
--- NOTE | 2019-08-30 14:52 | ED Physician Documentation ---
PD HPI URI - Stated complaint Stated Complaint: SOA - Chief complaint Chief Complaint: General - History obtained from History obtained from: Patient - History of Present Illness Timing - onset: How many days ago (3) Timing duration: Days (3) Timing details: Gradual onset, Still present Associated symptoms: Nasal congestion, Rhinorrhea, Productive cough, Dyspnea Contributing factors: Sick contact Improves by: Rest, Medication Similar symptoms before: Diagnosis (bronchitis and asthma) Recently seen: Not recently seen - Additional information Additional information: 34-year-old male with a history of asthma has become sick with a fever, cough and congestion over the past 5 days he is developed some feeling that he is having a hard time coughing up some phlegm from deep in his chest. He has not been able to use an inhaler. He denies any sore throat. Review of Systems Constitutional: reports: Fever, Chills, Myalgias, Fatigue Eyes: denies: Decreased vision Ears: denies: Ear pain Nose: reports: Rhinorrhea / runny nose, Congestion Throat: denies: Sore throat Cardiac: reports: Chest pain / pressure. denies: Palpitations Respiratory: reports: Dyspnea, Cough, Wheezing GI: denies: Abdominal Pain, Nausea, Vomiting PD PAST MEDICAL HISTORY - Past Medical History Cardiovascular: None Respiratory: Asthma Endocrine/Autoimmune: None Psych: Anxiety, Panic attacks Derm: Eczema - Past Surgical History Past Surgical History: No - Present Medications Home Medications: Ambulatory Orders Medication Instructions Recorded Confirmed Clotrimazole 1 applic TP BID #45 cream..g. 10/18/18 Fluconazole [Diflucan] 150 mg PO ONCE #3 tablet 10/18/18 LORazepam [Ativan] 1 mg PO Q8H PRN #25 tablet 10/18/18 Ondansetron Odt [Zofran] 4 mg TL Q6H PRN #15 tablet 10/18/18 Albuterol Sulf [Ventolin Hfa 1 - 2 puffs INH Q4HR PRN #1 inhaler 08/30/19 Inhaler] Amox/Clav 875/125 [Augmentin] 1 each PO Q12H #20 tablet 08/30/19 - Allergies Allergies/Adverse Reactions: Allergies Allergy/AdvReac Type Severity Reaction Status Date / Time shellfish derived Allergy Hives Verified 10/18/18 18:28 shrimp Allergy Hives Verified 10/18/18 18:28 seafood Allergy Hives Uncoded 10/18/18 18:28 - Social History Does the pt smoke?: Yes Smoking Status: Current every day smoker Does the pt drink ETOH?: Yes Does the pt have substance abuse?: No - Immunizations Immunizations are current?: No Immunizations: TDAP >10years/unknown - POLST Patient has POLST: No PD ED PE NORMAL - Vitals Vital signs reviewed: Yes (normal ) - General General: No acute distress, Well developed/nourished - HEENT HEENT: Atraumatic, PERRL, EOMI, Other (both TM's are flush the right is more involved the pharynx has a long uvula ) - Neck Neck: Supple, no meningeal sign, No bony TTP - Cardiac Cardiac: RRR, No murmur - Respiratory Respiratory: No respiratory distress, Clear bilaterally - Abdomen Abdomen: Soft, Non tender - Back Back: No CVA TTP, No spinal TTP - Derm Derm: Normal color, Warm and dry, No rash - Extremities Extremities: No deformity, No edema, No calf tenderness / cord - Neuro Neuro: Alert and oriented X 3, 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, No motor deficit, No sensory deficit, Normal speech Eye Opening: Spontaneous Motor: Obeys Commands Verbal: Oriented GCS Score: 15 - Psych Psych: Normal mood, Normal affect Results - Vitals Vitals: Vital Signs - 24 hr 08/30/19 13:25 Temperature 363.8 C H Heart Rate 77 Respiratory 16 Rate Blood Pressure 124/71 O2 Saturation 98 Oxygen O2 Source Room air - Rads (name of study) chest Radiology: Prelim report reviewed (Impression: Normal two-view chest radiography.), EMP read indepedently, See rad report PD MEDICAL DECISION MAKING - ED course Complexity details: reviewed old records, reviewed results, re-evaluated patient, considered differential, d/w patient ED course: 34-year-old male with a history of asthma has developed a cough and congestion on examination he has otitis and he has been treated for this successfully previously with Augmentin and dexamethasone. He has required inhaler previously. Departure - Departure Disposition: 01 Home, Self Care Clinical Impression: Otitis media Qualifiers: Otitis media type: suppurative Chronicity: acute Laterality: bilateral Recurrence: non-recurrent Spontaneous tympanic membrane rupture: without spontaneous rupture Qualified Code(s): H66.003 - Acute suppurative otitis media without spontaneous rupture of ear drum, bilateral Condition: Stable Instructions: ED Otitis Media Acute Adult Follow-Up: [facility] [Provider Group] Prescriptions: Albuterol Sulf [Ventolin Hfa Inhaler] 1 - 2 puffs INH Q4HR PRN #1 inhaler PRN Reason: Shortness Of Air/Wheezing Amox/Clav 875/125 [Augmentin] 1 each PO Q12H #20 tablet
--- NOTE | 2019-08-30 15:14 | XRAY Report ---
Reason: cough soa chest pain Procedure Date: 08/30/2019 Accession Number: [id number] / [id number] Procedure: XR - Chest 2 View X-Ray CPT Code: 76915 Final Report FULL RESULT: EXAM: CHEST RADIOGRAPHY EXAM DATE: 08/30/2019 03:03 PM. CLINICAL HISTORY: Cough soa chest pain. COMPARISON: CHEST 2 VIEW PA/LAT 06/19/2016 6:55 AM. TECHNIQUE: 2 views. FINDINGS: Lungs/Pleura: No focal opacities evident. No pleural effusion. No pneumothorax. Normal volumes. Mediastinum: Heart and mediastinal contours are unremarkable. Other: None. IMPRESSION: Normal 2-view chest radiography. RADIA
[2019-08-30 15:33] VITALS: BP 116/73
== END 2019-08-30 15:33 | disposition home or self-care (01) ==
LOC: ED 13:12
DX: H66.003 Acute suppurative otitis media without spontaneous rupture of ear drum, bilateral (principal); J45.909 Unspecified asthma, uncomplicated; F17.200 Nicotine dependence, unspecified, uncomplicated
CPT/HCPCS: 71046; 99283; 99284; A9270

== ENCOUNTER 2019-10-02 08:21 | Outpatient (CLI) | payer MEDICAID | END 2019-10-02 08:22 | disposition EMS.NT | LOC: EMS 08:21 | PROVIDERS: ATTEND Surgery | DX: Z53.9 Procedure and treatment not carried out, unspecified reason (principal) ==

== ENCOUNTER 2020-06-13 01:11 | Emergency (ER) | payer MEDICAID ==
--- NOTE | 2020-06-13 01:20 | ED Physician Documentation ---
History of Present Illness - Stated complaint Stated Complaint: WITHDRAWLS - History obtained from History obtained from: Patient - History of Present Illness Timing: How many weeks ago (1-2) Pain level max: 0 Pain level now: 0 Improved by: rest Worsened by: possible positional component (see narrative below) - Additonal information Additional information: patient stopped drinking alcohol 1 week ago. He had been drinking approximately 12 beers per day every day for past several months. He says for the past "few weeks" (per patient), he feels he is "pale". His chief complaint is that he says he appears pale to himself as well as his girlfriend. He has fatigue, lightheadedness/dizziness as well. These symptoms were initially worse when standing but he says he has this pale appearance and some degree of fatigue and lightheadedness even at rest for the past several days. He says his face appears pale to him and his girlfriend, but he also perceives both wrists and hands are pale as well Review of Systems Constitutional: reports: Fatigue. denies: Fever, Chills, Sweats Eyes: denies: Decreased vision Cardiac: reports: Reviewed and negative Respiratory: reports: Reviewed and negative GI: denies: Abdominal Pain, Nausea, Vomiting Musculoskeletal: denies: Neck pain, Back pain Neurologic: denies: Generalized weakness, Focal weakness, Numbness, Headache PD PAST MEDICAL HISTORY - Past Medical History Cardiovascular: None Respiratory: Asthma Endocrine/Autoimmune: None Psych: Anxiety, Panic attacks Derm: Eczema - Past Surgical History Past Surgical History: No - Present Medications Home Medications: Ambulatory Orders Medication Instructions Recorded Confirmed No Known Home Medications 06/13/20 06/13/20 - Allergies Allergies/Adverse Reactions: Allergies Allergy/AdvReac Type Severity Reaction Status Date / Time shellfish derived Allergy Hives Verified 06/13/20 01:18 shrimp Allergy Hives Verified 06/13/20 01:18 seafood Allergy Hives Uncoded 06/13/20 01:18 - Social History Does the pt smoke?: Yes Smoking Status: Current every day smoker Does the pt drink ETOH?: Yes Does the pt have substance abuse?: No - Immunizations Immunizations are current?: No Immunizations: TDAP >10years/unknown - POLST Patient has POLST: No PD ED PE NORMAL - Vitals Vital signs reviewed: Yes - General General: Alert and oriented X 3, No acute distress, Well developed/nourished - Cardiac Cardiac: RRR, No murmur - Respiratory Respiratory: No respiratory distress, Clear bilaterally - Abdomen Abdomen: Soft, Non distended, Other (mild epigastric tenderness without rebound or guarding) - Derm Derm: Normal color, Warm and dry Results - Vitals Vitals: Vital Signs - 24 hr 06/13/20 06/13/20 01:14 04:23 Temperature 36.8 C 37.0 C Heart Rate 80 65 Respiratory 20 15 Rate Blood Pressure 143/86 H 144/101 H O2 Saturation 99 99 Oxygen O2 Source Room air - Labs Labs: Laboratory Tests 06/13/20 06/13/20 06/13/20 01:58 01:58 01:58 WBC 5.5 RBC 5.20 Hgb 16.2 Hct 47.7 MCV 91.7 MCH 31.2 H MCHC 34.0 RDW 12.6 Plt Count 201 MPV 11.3 Neut # (Auto) 3.6 Lymph # (Auto) 0.9 L Dunn # (Auto) 0.6 Eos # (Auto) 0.4 Baso # (Auto) 0.0 Absolute Nucleated RBC 0.00 Nucleated RBC % 0.0 PT 13.2 H INR 1.2 APTT 31.3 Sodium 139 Potassium 4.4 Chloride 103 Carbon Dioxide 25 Anion Gap 11.0 BUN 23 H Creatinine 1.4 H Estimated GFR (MDRD) 58 L Glucose 98 Calcium 9.9 Total Bilirubin 1.3 H AST 30 ALT 37 Alkaline Phosphatase 55 Total Protein 7.9 Albumin 4.9 Globulin 3.0 Albumin/Globulin Ratio 1.6 Lipase 29 PD MEDICAL DECISION MAKING - ED course Complexity details: reviewed results, re-evaluated patient, considered differential, d/w patient ED course: I do not appreciate any pallor of this patient including hands/wrists, face. His blood tests are reassuring, with mildly abnormal bun/creatinine and total bilirubin. He does not have signs nor symptoms of alcohol withdrawal. Results d/w patient. Departure - Departure Disposition: 01 Home, Self Care Clinical Impression: Fatigue Condition: Good Instructions: ED Weakness [facility] Comments: Follow up with your primary care provider; call to arrange for next available appointment. Your blood tests do not reveal any significant abnormalities and none that would explain your symptoms. Discharge Date/Time: 06/13/20 04:24
[2020-06-13] MEDS ORDERED: SODIUM CHLORIDE 0.9% 1,000 ML IV STA (01:54)
[2020-06-13] MEDS ORDERED: PANTOPRAZOLE 40 MG VIAL IVP STA (01:55)
[2020-06-13 02:03] LABS: BASOPHILS % (AUTO) 0.5 %; EOSINOPHILS # (AUTO) 0.4 10^3/uL (0.0-0.7); EOSINOPHILS % (AUTO) 6.9 %; HGB - HEMOGLOBIN 16.2 g/dL (14.0-18.0); LYMPHOCYTES # (AUTO) 0.9 10^3/uL (1.5-3.5); LYMPHOCYTES % (AUTO) 16.4 %; MEAN CORPUSCULAR HEMOGLOBIN 31.2 pg (27.0-31.0); MEAN CORPUSCULAR VOLUME 91.7 fL (80.0-94.0); MEAN PLATELET VOLUME 11.3 fL (7.4-11.4); MONOCYTES # (AUTO) 0.6 10^3/uL (0.0-1.0); MONOCYTES % (AUTO) 10.1 %; NEUTROPHILS # (AUTO) 3.6 10^3/uL (1.5-6.6); NEUTROPHILS % (AUTO) 65.7 %; PLT - PLATELET COUNT 201 10^3/uL (130-450); RED CELL DISTRIBUTION WIDTH 12.6 % (12.0-15.0); WHITE BLOOD COUNT 5.5 x10^3/uL (4.8-10.8)
[2020-06-13 02:09] LABS: INR 1.2 (0.8-1.2); PT - PROTHROMBIN TIME 13.2 secs (9.9-12.6)
[2020-06-13 02:16] LABS: PARTIAL THROMBOPLASTIN TIME 31.3 secs (24.9-33.3)
[2020-06-13 02:18] LABS: ALBUMIN 4.9 g/dL (3.2-5.5); ALBUMIN/GLOBULIN RATIO 1.6 (1.0-2.2); BILIRUBIN,TOTAL 1.3 mg/dL (0.2-1.0); CALCIUM 9.9 mg/dL (8.5-10.3); CREATININE 1.4 mg/dL (0.6-1.2); TOTAL PROTEIN 7.9 g/dL (6.7-8.2)
[2020-06-13 04:23] VITALS: BP 144/101
== END 2020-06-13 04:24 | disposition home or self-care (01) ==
LOC: ED 01:11
DX: R53.83 Other fatigue (principal); F17.200 Nicotine dependence, unspecified, uncomplicated
CPT/HCPCS: 36415; 80053; 83690; 85025; 85610; 85730; 96361; 96374; 99283

== ENCOUNTER 2021-01-10 14:05 | Emergency (ER) | payer MEDICAID ==
[2021-01-10] MEDS ORDERED: TETANUS/DIPHTHERIA/PERTUSSIS 0.5 ML SYRINGE IM ONE (14:16)
[2021-01-10] MEDS ORDERED: BUFFERED LIDOCAINE 10 ML SYRINGE SUBQ STA (14:16)
[2021-01-10] MEDS ORDERED: BACITRACIN ZINC OINT 1 PACKET TOP STA (14:16)
--- NOTE | 2021-01-10 14:38 | ED Physician Documentation ---
History of Present Illness - Stated complaint Stated Complaint: left leg lac - Chief complaint Chief Complaint: Laceration - Additonal information Additional information: 35-year-old male presents emergency department for evaluation of a laceration on his left lateral calf sustained when he was taking garbage out at home and something sharp in the garbage cut him. Unknown last tetanus. Bleeding controlled with pressure. Review of Systems Constitutional: reports: Reviewed and negative Ears: reports: Reviewed and negative Nose: reports: Reviewed and negative Throat: reports: Reviewed and negative Cardiac: reports: Reviewed and negative Respiratory: reports: Reviewed and negative GI: reports: Reviewed and negative : reports: Reviewed and negative Skin: reports: Laceration (s) Musculoskeletal: reports: Reviewed and negative PD PAST MEDICAL HISTORY - Past Medical History Cardiovascular: None Respiratory: Asthma Endocrine/Autoimmune: None Psych: Anxiety, Panic attacks Derm: Eczema - Past Surgical History Past Surgical History: No - Present Medications Home Medications: Ambulatory Orders Medication Instructions Recorded Confirmed No Known Home Medications 06/13/20 01/10/21 - Allergies Allergies/Adverse Reactions: Allergies Allergy/AdvReac Type Severity Reaction Status Date / Time shellfish derived Allergy Hives Verified 01/10/21 14:10 shrimp Allergy Hives Verified 01/10/21 14:10 seafood Allergy Hives Uncoded 01/10/21 14:10 - Social History Does the pt smoke?: Yes Smoking Status: Current every day smoker Does the pt drink ETOH?: Yes Does the pt have substance abuse?: No - Immunizations Immunizations are current?: No Immunizations: TDAP >10years/unknown - POLST Patient has POLST: No PD ED PE EXPANDED - Derm Derm: Laceration(s) (6 cm laceration left lateral calf. Patient has a normal gait. Is able to appropriately flex the gastrocnemius. Normal flexion extension of the ankle. Distal perfusion and sensation preserved.) Results - Vitals Vitals: Vital Signs - 24 hr 01/10/21 14:10 Temperature 37.0 C Heart Rate 108 H Respiratory 18 Rate Blood Pressure 149/102 H O2 Saturation 100 Oxygen O2 Source Room air Procedures - Laceration (location) left calf Length in cm: 6 Wound type: Linear, Into subcut fat, Clean Neurovascular status: Sensory intact, Motor intact, Vascular intact Tendon involvement: Tendon intact Anesthesia: Lidocaine 1% Wound preparation: Chlorhexadine, Irrigated copiously NS Skin layer closure: [place] (8 placed) Other: Patient tolerated well, No complications, Neurovascular intact, Dressing applied, Tetanus booster given PD MEDICAL DECISION MAKING - ED course Complexity details: re-evaluated patient, d/w patient ED course: 35-year-old male presents emergency department for evaluation of a laceration on his left lateral calf sustained when he was taking out garbage and something sharp cut it. Tetanus was updated today. This laceration went through the full length of the subcutaneous tissue but the muscle body was preserved. Wound was copiously irrigated after being thoroughly cleansed with chlorhexidine. It was closed easily with 8 esha. Routine wound care and emergent return precautions were discussed. Departure - Departure Disposition: 01 Home, Self Care Clinical Impression: Laceration of left leg Qualifiers: Encounter type: initial encounter Qualified Code(s): S81.812A - Laceration without foreign body, left lower leg, initial encounter Condition: Stable Record reviewed to determine appropriate education?: Yes Instructions: ED Laceration All Comments: Your esha (8 in total) should be removed in 7 to 10 days. In 24 hours you may remove the dressing wash gently with warm soap and water, apply any antibiotic ointment and a simple bandage. Your tetanus was updated today Please attempt to keep your wound clean and dry. Do not submerge it in dirty dishwater or bath water. However you may shower normally Return to the emergency department if you have any concerns of infection such as redness, fevers milky drainage increased pain.
[2021-01-10 15:04] VITALS: BP 150/99
== END 2021-01-10 15:04 | disposition home or self-care (01) ==
LOC: ED 14:05
DX: S81.812A Laceration without foreign body, left lower leg, initial encounter (principal); W25.XXXA Contact with sharp glass, initial encounter; Y93.89 Activity, other specified; Y92.009 Unspecified place in unspecified non-institutional (private) residence as the place of occurrence of the external cause; Z23 Encounter for immunization; F17.200 Nicotine dependence, unspecified, uncomplicated
CPT/HCPCS: 12002; 90471; 90715; 99281; 99283; A9270